=== PATIENT | male | born 1990 | race Two or more races ===

== ENCOUNTER 2024-01-03 05:14 | Emergency (ER) | payer BC ==
[~2024-01-03] VITALS: Ht 180.3 cm; Wt 83.5 kg
[2024-01-03] MEDS ORDERED: KETOROLAC TROMETHAMINE 30 MG VIAL IM STA (08:10)
[2024-01-03] MEDS ORDERED: METHYLPREDNISOLONE SOD SUCC 125 MG VIAL IM STA (08:10)
== END 2024-01-03 09:25 | disposition home or self-care (01) ==
LOC: ER 05:14
DX: M79.601 Pain in right arm (principal)